=== PATIENT | male | born 1955 | race Caucasian/White ===

== ENCOUNTER 2018-08-13 19:19 | Inpatient (IN) | payer OTHER ==
[~2018-08-13] VITALS: Ht 162.6 cm; Wt 64.0 kg
--- NOTE | 2018-08-13 19:30 | NUR ---
PT ADMITTED FROM [facility] IN [place] PER PRIVATE CAR WITH HIS TWO SISTERS. PT APHASIC. ANSWERS SOME YES NO QUESTIONS. FOLLOWS MOST DIRECTIONS. VERY TIRED. DENIES PAIN. RECEIVED INFORMATION FROM SISTERS. PT HAS LIVING WILL. REQUESTED COPY OF IT. REVIEWED IPR ROUTINE. ORIENTED TO ROOM AND SCHEDULE. SISTERS VERY SUPPORTIVE. PT ATE 100% OF MEAL PROVIDED. REPORT INDICATED VERY IMPULSIVE. WILL NOT USE CALL LIGHT. CALL LIGHT IN REACH. REVIEWED SAFETY POLICY WITH PT AND FAMILY. PT HAS RT HEMIPARESIS. WALKS UNSTEADY. ASSISTED TO BED. TOOK SHOES OFF. DIDNT WANT TO CHANGE CLOTHING. BED ALARM SET.
[2018-08-13 19:49] VITALS: BP 121/76; PULSE 71; TEMP 97.2
[2018-08-13 20:32] VITALS: BP 131/79; PULSE 116
[2018-08-14] MEDS ORDERED: ROBAXIN 50500 MG/TAB PO (03:46)
[2018-08-14] MEDS ORDERED: NORCO 325 MG-7.1 TAB PO (03:47)
[2018-08-14] MEDS ORDERED: KEPPRA 500MG500 MG PO (03:48)
[2018-08-14] MEDS ORDERED: ZOFRAN ODT4 MG PO (03:49)
[2018-08-14] MEDS ORDERED: MULTI VITAMINS1 TAB PO (03:50)
[2018-08-14] MEDS ORDERED: DECADRON 1MG TAB1 MG PO (03:50)
[2018-08-14] MEDS ORDERED: VITAMIN C500 MG PO (03:51)
[2018-08-14] MEDS ORDERED: MASON NATURAL2000 IU (03:52)
[2018-08-14 05:21] VITALS: BP 103/67; BP 91/53; PULSE 56; TEMP 98.5
--- NOTE | 2018-08-14 07:04 | NUR ---
shift report received from LION Sahw
--- NOTE | 2018-08-14 08:15 | NUR ---
sitting up in chair, has had breakfast and tolerated well, answers questions with yes or no when asked, full assessment completed see interventions for further info,
--- NOTE | 2018-08-14 08:46 | NUR ---
physical therapy in to work with patient
--- NOTE | 2018-08-14 09:31 | NUR ---
back from physical therapy and resting in chair
--- NOTE | 2018-08-14 10:30 | NUR ---
physical therapy in to work with patient
--- NOTE | 2018-08-14 11:08 | NUR ---
occupational therapy in to work with patient
--- NOTE | 2018-08-14 13:45 | NUR ---
appears to be sleeping, in bed with eyes closed, resp quiet and easy
--- NOTE | 2018-08-14 14:41 | NUR ---
speech therapy completed and back to bed to rest
--- NOTE | 2018-08-14 15:33 | NUR ---
appears to be sleeping, in bed with eyes closed, resp quiet and easy
--- NOTE | 2018-08-14 15:45 | NUR ---
LORENZA attempted to meet with the patient to complete initial intake. The patient was sleepy and did not answer to LORENZA. LORENZA asked the patient if he would like for LORENZA to come back later. The patient nodded yes. LORENZA attempted to contact the patient's sister, Jocelyne, via phone. LORENZA left a voicemail and will continue to follow.
[2018-08-14 17:12] VITALS: BP 97/65; PULSE 55; TEMP 97.8
--- NOTE | 2018-08-14 17:45 | NUR ---
in bed and appears to be sleeping, lights of, eyes closed, resp quiet and easy
--- NOTE | 2018-08-14 18:34 | NUR ---
bedside shift report given to LION Shaw
--- NOTE | 2018-08-14 20:00 | NUR ---
PT RESTING IN BED. RESTLESS. UP TO BR SEVERAL TIMES, IMPULSIVELY. OFFER AMB IN [place]- DECLINED. PT ASPHASIC. DOES ANSWER SOME YES NO QUESTIONS. PT COULDNT ANSWER WHEN LBM WAS. GAVE SENOKOT AND TYLENOL. GOT SOME DR JEAN-BAPTISTE FROM THE MACHINE FOR PT. PT VERY HAPPY. RT SIDE WEAKNESS. BUT HAS STEADY GAIT. ENC PT TO CALL ON CALLIGHT IF NEEDING ANYTHING. INFORMED NOTES WERE PUT AT NURSES CALL LIGHT THAT HE WAS UNABLE TO VERBALLY RESPOND AND TO GO SEE IF HE NEEDED ANYTHING. PT SHOOK HEAD HE UNDERSTOOD. OCCASIONALLY WILL USE CALL LIGHT.
[2018-08-15 05:19] VITALS: BP 103/59; PULSE 54; TEMP 97.5
--- NOTE | 2018-08-15 08:00 | NUR ---
PATIENT IS UP IN BED THIS MORNING. PATIENT IS A&O. VSS. BOWEL SOUNDS ACTIVE ALL FOUR QUADRANTS. PATIENT TOLERATING MECHANICAL SOFT FOODS & LIQUIDS WITHOUT ANY DIFFICULTY. PATIENT DENIES COMPLAINTS OF N/V. POSITIVE PEDAL PULSES EQUAL BILATERALLY. 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 PATIENT DENIES PAIN AT THIS TIME. CALL LIGHT WITHIN REACH. NO OTHER NEEDS AT THIS TIME.
--- NOTE | 2018-08-15 16:04 | NUR ---
PATIENT REQUIRES SOME CUEING TO WIPE AND PULL PANTS UP AFTER USING THE BATHROOM INTERMITTENTLY. PATIENT EDUCATION ON UTILIZING THE CALL LIGHT REINFORCED.
[2018-08-15 18:00] VITALS: BP 96/65; PULSE 71; TEMP 97.9
--- NOTE | 2018-08-16 02:16 | NUR ---
THE PT WAS BEDRESTING WITH EYES CLOSED, RESP EVEN THE SHIFT BEGAN. THIS NURSE RECIEVED A CALL FROM THE PTS SISTER WHO ASKED ABOUT HIS DAY. REMINDED US THAT THE PT LIKES DR. JEAN-BAPTISTE. BAO. SHE STATED THAT SHE WASN'T ABLE TO MAKE A VISIT TODAY BUT WILL TOMORROW. HE HAD A VANILLA PUDDING FOR HS SNACK, MEDS TAKEN WHOLE WITHOUT DIFFICULTY. APPEARS TO GET ADEQUATE SLEEP. DENIED PAIN.
[2018-08-16 03:39] VITALS: BP 94/59; PULSE 56; TEMP 98.2
--- NOTE | 2018-08-16 04:27 | NUR ---
THE PT SET OFF HIS BED ALARM X 2 TONIGHT. EACH TIME WITH THE NEED TO GO TO THE BR AND VOID. HE THEN WENT TO THE SINK WITH CGA TO WASH HIS HANDS. HE SEEMED SLIGHTLY CONFUSED TO WHAT TO DO FIRST. 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 THIS NURSE RETRIEVED IT. SHOWED HIM THAT IT S A CLOTH- REUSED OVER AND OVER.
--- NOTE | 2018-08-16 06:12 | NUR ---
THE PT'S ACCUCHECK THIS AM IS 101, HE HAS NO OTHER LABS DUE THIS AM. APPEARS TO HAVE SLEPT ADEQUATELY.
--- NOTE | 2018-08-16 09:11 | NUR ---
Assessment complete.patient awake,alert,confused and impulsive.attempted to get out of bed.this nurse redirected.patient took all meds crushed in yogurt.tu to head are CDI and edges are well approximated.patient denies any needs at this time.calll light in reach.
[2018-08-16 16:16] VITALS: BP 110/70; PULSE 55; TEMP 98.3
--- NOTE | 2018-08-16 17:17 | NUR ---
PATIENT RESTING IN ROOM AT THIS TIME.FAMILY STOPPED BY TO VISIT.PATIENT REMAINS APHASIC.PT HAS USED THE CALL LIGHT APPROPRIATELY X3 THIS SHIFT.GAIT IS STABLE.SBA.FAMILY REQUEST CHANGE OF DIET,THIS RN EXPLAINED THAT SPEECH THERAPY IS INCHARGE OF THAT AND ARE FOLLOWING PATIENT.WILL CONTINUE TO MONITOR.CALL LIGHT IN REACH
--- NOTE | 2018-08-16 23:58 | NUR ---
PT RESTING. FOLLOW COMMANDS. APHASIC. DOES NOT ATTEMPT TO COMMUNICATE. NO EYE CONTATCT. SHAKES HEAD NO TO PAIN QUESTION. CALL LIGHT IN REACH. BED ALARM SET.
[2018-08-17 05:04] VITALS: BP 117/80; PULSE 54; TEMP 98.5
[2018-08-17 08:06] LABS: HEMATOCRIT 41.9 % (42.0-52.0); HEMOGLOBIN 13.8 g/dl (13.5-18.0); MEAN CELL VOLUME 88 fl (80.0-100.0); MEAN CORPUSCULAR HEMOGLOBIN 29 pg (27.0-31.0); MEAN CORPUSCULAR HGB CONC 33 g/dl (33.0-37.0); MEAN PLATELET VOLUME 8.3 fl (7.4-10.4); PLATELET COUNT 332 K/mm3 (130-400); RED BLOOD COUNT 4.74 M/mm3 (4.20-5.60); REDCELL DISTRIBUTION WIDTH-CV 14.2 % (11.5-14.5)
[2018-08-17 08:16] LABS: ALBUMIN 3.3 gm/dL (3.5-5.0); BILIRUBIN,TOTAL 0.3 mg/dL (0.0-1.0); CALCIUM 8.6 mg/dL (8.4-10.2); CREATININE, serum 0.78 mg/dL (0.66-1.25); MAGNESIUM 2.3 mg/dL (1.6-2.3); POTASSIUM 4.6 mmol/L (3.4-5.0); TOTAL PROTEIN 6.2 gm/dL (6.4-8.2)
--- NOTE | 2018-08-17 08:22 | NUR ---
Report from LION Shaw. Pt ate breakfast, aphasic, nods yes/no and tries to whisper answer. Took pills crushed in applesauce, amb with gait belt and CGA. Incison CDI with tu. Washed hands at sink after breakfast, assisted with donning shoes and left with CPTA. Denies pain.
--- NOTE | 2018-08-17 08:36 | NUR ---
SCDs off as pt OOB
[2018-08-17 10:07] LABS: LYMPHOCYTE 23 % (20.0-51.0); NEUTROPHILS 73 % (42.0-75.2); PLATELET ESTIMATE NORMAL (NORMAL)
[2018-08-17 15:23] VITALS: BP 98/64; PULSE 62; TEMP 98
--- NOTE | 2018-08-17 16:09 | NUR ---
Pt's sisters and family visiting. Pt toileted, returned to chair with alarm on.
--- NOTE | 2018-08-17 16:47 | NUR ---
SCD's off as pt OOB
--- NOTE | 2018-08-17 17:56 | NUR ---
Pt's bed alarm went off, he motioned toward the bed where the pillows rest and said one word over again but could not discern. Nurse prompted pt if he wanted the head of the bed down, yes, then if he wanted to tv off, yes. Settled into bed, alarm on. Call light in reach.
--- NOTE | 2018-08-18 01:23 | NUR ---
THE PT WAS NAPPING THE SHIFT BEGAN. HE AROUSED EASILY FOR ASSESSMENT AND MEDS, THEN ATE AN ICE CREAM. MEDS WERE CRUSHED IN APPLE SAUCE. DENIED PAIN. AFFECT QUIET. SAT UP ON EDGE OF BED, SETTING OFF HIS BED ALARM, THIS NURSE WALKED HIM TO THE BR, VOIDED AND BACK TO BED. APPEARS TO GET ADEQUATE SLEEP.
--- NOTE | 2018-08-18 03:15 | NUR ---
THE PT SAT UP ON THE EDGE OF THE BED, ALARM SOUNDED, THIS NURSE IN AND ASSISTED THE PT TO THE BR TO VOID, THEN TO THE SINK TO WASH HIS HANDS.
[2018-08-18 03:58] VITALS: BP 94/65; PULSE 57; TEMP 98.2
--- NOTE | 2018-08-18 14:59 | NUR ---
Patient attended all therapies today. Currently resting in recliner, call light in reach and alarm on. Patient has shoes on at this time. Patient tolerating diet well at this time. Currently on a mechanical soft diet. Patient has dyphasia and seems to act like he understands what staff are saying to him. He takes his pills crushed with applesauce or pudding. He has been complient with sitting at a 90 degree angle when eating and has shown known signs of coughing with eating with either breakfast or lunch meal. Will continue to monitor.
[2018-08-18 17:25] VITALS: BP 107/67; PULSE 80; TEMP 98.1
--- NOTE | 2018-08-18 18:16 | NUR ---
Patient ate well this shift. Had neighbors stop by to see him today. Patient is observed as being quiet, friends report that he was like that before the dysphasia occured. Patient used call light appropriatly this shift and did not get up before staff arrived to assist him to the bathroom. Denied pain this shift.
--- NOTE | 2018-08-19 02:46 | NUR ---
THE PT WAS NAPPING THE SHIFT BEGAN. HE AROUSED EASILY FOR ASSESSMENT AND MEDS. AGREEABLE TO TAKE HIS SNACK. MEDS CRUSHED IN APPLE SAUCE. HE IS UP TO THE BR WITH SBA, GAIT STEADY BUT TOO FAST AND HAS SOME DIFFICULTY WITH ADL SEQUENCING THIS NURSE HAD TO CUE HIM TWICE TO LOWER HIS UNDERWEAR BEFORE HE SITS DOWN ON THE COMMODE. THEN CUE HIM TO WET, LATHER, RINSEHIS HANDS HE TURNS THE FAUCET OFF WHEN SOAPED UP. HE APPEARS TO GET ADEQUATE SLEEP. DENIED PAIN
--- NOTE | 2018-08-19 03:22 | NUR ---
THE PT IS BEDRESTING WITH EYES CLOSED, RESP EVEN
[2018-08-19 06:23] VITALS: BP 108/68; PULSE 65; TEMP 98.4
--- NOTE | 2018-08-19 11:22 | NUR ---
Faxed consult referral form to [facility]. Called the office to make them aware that this patient needed to be seen. Person at Behavioral Health office voiced understanding. Awaiting a visit from Dr. Moya.
--- NOTE | 2018-08-19 15:47 | NUR ---
LORENZA called patients sister Roxana about IPR team conference notes. LORENZA explained the contents to her. She is worried about him being able to be alone at discharge. LORENZA talked with her about HH and private duty help while she is at work if he were to come stay with her. Roxana reports her sister in law is a nurse and could maybe help on her days off as well. LORENZA talked with Roxana about a family conference early next week. She is going to call her siblings and see about a time they could do and call LORENZA back by tomorrow am. LORENZA will follow up to set a family conference time.
--- NOTE | 2018-08-19 16:11 | NUR ---
Patient attended all therapies today, he is currently visiting with Dr. Moya at this time. See new orders per Dr. Moya. Will make a call to a pharmaceutical laboratory technician to see if they could make rounds to see this patient daily. Attempted to call pharmaceutical laboratory technician and did not get an answer. Left a voicemail for someone to return my call. Awaiting a return call. This will be communicated to the next shift nurse.
[2018-08-19 18:10] VITALS: BP 103/67; PULSE 67; TEMP 98.1
--- NOTE | 2018-08-19 19:41 | NUR ---
Never received a return call from nurse infection control. Communicated to night nurse to have day shift call nurse infection control services and have them see patient on rounds tomorrow. She voiced understanding.
--- NOTE | 2018-08-19 21:49 | NUR ---
PT SITTING UP IN RECLINER. TOOK HS SNACK. DENIES PAIN. RT SIDED WEAKNESS NOTED. SOME RT SIDED NEGLECT NOTED. CALL LIGHT IN REACH. CHAIR ALARM SET.
[2018-08-20 04:33] VITALS: BP 93/62; PULSE 60; TEMP 98.3
--- NOTE | 2018-08-20 10:04 | NUR ---
Report from LION Shaw. Pt was asleep in bed this morning at shift change. ST in with pt now. Pt has severe aphasia, needing max assist for uttering words. Incision with tu intact.
--- NOTE | 2018-08-20 10:09 | NUR ---
Pt took pills one at a time with water through straw. Coughing on first pills. Deb others well. ST Janell supervised.
--- NOTE | 2018-08-20 10:56 | NUR ---
LORENZA spoke with patients sister Roxana who reports they can come friday, 08/24, for a family meeting at 9 am in patients room. Aubree, [facility] director, informed.
--- NOTE | 2018-08-20 12:27 | NUR ---
Pt's chair alarm went off, pt amb to BR, SBA to sink for hygiene, asked pt if he had a normal BM, he states yes. Answers yes/no questions. Took three pills with water without difficulty. To chair with alarm on, call light in reach
--- NOTE | 2018-08-20 14:41 | NUR ---
SCDs off as pt OOB to chair.
--- NOTE | 2018-08-20 15:03 | NUR ---
Called [facility] to request pt be visited d/t depression and tearfulness per Psych.
--- NOTE | 2018-08-20 15:08 | NUR ---
Pt impulsive out of chair to bed, set off alarms, set bed alarm on middle setting, offered blankets, agreeable. Greige Goods Inspector visited.
--- NOTE | 2018-08-20 15:11 | NUR ---
Initial visit; Patient appeared 'blue' to nurse who requested Chinese Herbalist visit. Chinese Herbalist visited Alvin who appeared ready for his nap but was receptive to prayer. Chinese Herbalist offered comfort and prayer and with patient's permission decided to return tomorrow morning for prayer and perhaps reading.
[2018-08-20 18:27] VITALS: BP 98/63; PULSE 67; TEMP 97.7
--- NOTE | 2018-08-20 18:35 | NUR ---
Pt in bed with alarm on, call light in reach.
[2018-08-21 03:55] VITALS: BP 92/59; PULSE 59; TEMP 98.5
--- NOTE | 2018-08-21 04:47 | NUR ---
PT HAS SLEPT THROUGH MOST OF THE NIGHT. DENIES PAIN OR COMPLAINTS AT THIS TIME.
--- NOTE | 2018-08-21 07:36 | NUR ---
SCDs off as pt OOB to chair for breakfast
--- NOTE | 2018-08-21 14:32 | NUR ---
Follow-up visit; Several stop in's today, Support Services Rep is attempting to discern what might be helpful in ministering to Alvin. He seems to be comfortable with visits though answers only by saying "yeah," or shaking his head. He isn't interested in reading but states that he knows he has people who care and want to help. He is 'ok' with a visit from an "On-Call" Support Services Rep on rounds Friday and regular Support Services Rep will follow-up Friday.
--- NOTE | 2018-08-21 14:42 | NUR ---
Pt took pills this morning one at a time with thin liquids. No coughing, but acted like he had difficulty swallowing a few of them, enc pt to take his time, offered spoon of yogurt after these episodes. Pt would slat pickler varying cups/bowls to drink from: spilling opened milk carton from mouth so provided straw for carton, he also sipped on juice from bowl of peaches after taking a pill, then would reach for water with straw. Pt attempts to speak a few words, was able to say his first and last name, when asked he only correctly said "6" and other numbers. Pt has gotten up without calling, once called then moved prior to staff arriving. Amb w/o device. In recliner with alarm on, call light in reach. Incision intact, shoes in place.
--- NOTE | 2018-08-21 15:34 | NUR ---
Pt called then got up before staff at his side. Toileted.
--- NOTE | 2018-08-21 15:41 | NUR ---
Pt toileted, washed hands at sink, to bed with alarm on, call light in reach.
[2018-08-21 16:20] VITALS: BP 99/66; PULSE 68; TEMP 98.7
--- NOTE | 2018-08-21 19:17 | NUR ---
Bedside report to LION Araiza. Pt to Kenyatta LINDSAY CNA finished assisting pt. Visitors arrived.
--- NOTE | 2018-08-21 20:00 | NUR ---
Patient in bed, family at bedside. Patient able to answer yes or no questions with ease. Alert and oriented. Patient up to restroom, stand by assist, with steady gait. Scalp incision with tu intact, edges well approximated. Denies pain at this time. Denies further needs at this time.
[2018-08-22 04:04] VITALS: BP 112/56; BP 92/56; PULSE 57; TEMP 98.2
--- NOTE | 2018-08-22 05:33 | NUR ---
Patient has rested well through the night. Minimal needs. Has been up to restroom, stand by assist, with steady gait. Continues to deny pain. Denies further needs at this time. Will report off to day shift.
--- NOTE | 2018-08-22 08:00 | NUR ---
Patient sitting in recliner at this time, call light in reach and chair alarm is on. Denies pain this morning. Helped patient select clothes for today and set out to put on following breakfast. Tolerating diet well this morning. Will continue to monitor.
--- NOTE | 2018-08-22 14:23 | NUR ---
Walked the surgical/IPR/medical hallways with patient making three rounds. Patient was observation only. Worked with patient on viewing his photos and having him talk with this nurse. He was not able to write out his dogs name, but did say dog correctly and pointed to him. He had a smile on his face a few times today.
--- NOTE | 2018-08-22 16:01 | NUR ---
Trimmed patient's finger nails and filed them. Patient assisted this nurse with making his bed today. He pulled up blankets and helped fold them down. Currently he is reclined in his chair and watching television. Will continue to monitor.
[2018-08-22 18:00] VITALS: BP 106/64; PULSE 83; TEMP 97.9
--- NOTE | 2018-08-22 21:00 | NUR ---
Patient resting in bed at this time, Patient is alert and oriented, but aphasic, able to communicate by nodding and shaking his head, and pointing. Patient denies needs, call light wihtin reach. Bed alarm on.
[2018-08-23 06:11] VITALS: BP 92/59; PULSE 58; TEMP 97.7
--- NOTE | 2018-08-23 11:08 | NUR ---
Patient currently walking with staff around hallway at this time. Tolerating diet well eating all his meal this morning. Denies pain today. Assisted with dressing this morning. Will try to work in a shower this afternoon if possible. Patient in pleasent mood. Will continue to monitor.
--- NOTE | 2018-08-23 12:41 | NUR ---
Patient resting in recliner at this time, call light in reach and tennis shoes on. Tolerating meals well, eating 100% of lunch. Will continue to monitor.
--- NOTE | 2018-08-23 14:54 | NUR ---
Patient resting in recliner at this time, call light in reach and alarm is on. Pleasent mood today. Denies pain at this time. Denies questions at this time.
[2018-08-23 15:37] VITALS: BP 130/64; PULSE 67; TEMP 97.7
--- NOTE | 2018-08-23 19:33 | NUR ---
Patient had a shower following supper this evening. Currently resting in bed, call light in reach and bed alarm is on. Denied pain this evening.
--- NOTE | 2018-08-23 22:59 | NUR ---
THE PT WAS NAPPING THE SHIFT BEGAN, HE TOOK ALL OF HIS ENLIVE NUTRITIONAL SUPPLIMENT, THEN HAD MEDS CRUSHED IN VANILLA PUDDING AND THEN FINISHED THE CUP, OFFERED ICE CREAM, HE WANTED CHOCOLATE. THIS NURSE WENT THROUGH THE MENUE WITH HIM, HE SHOOK HIS HEAD YES AND NO TO DETERMINE WHAT HE WANTED. HE DENIED WANTING ANY BEVERAGES ON THE MENUE, BUT SEEMED FRUSTRATED AT OFFERS, THIS NURSE RECALLED THAT HIS SISTERS MENTIONED THAT HE JUST DRANK DR CUNHA AT HOME, WHEN ASKED IF HE WANTED DR. JEAN-BAPTISTE, HE STRONGLY ACKNOWLEDGED YES. HE HAS HIS BED ALARM ON, AWARE TO CALL FOR ASSISTANCE WITH ALL OOB NEEDS.
--- NOTE | 2018-08-24 00:47 | NUR ---
THE PT ISN'T USING HIS SCD'S HE IS IMPULSIVE AND FAST, BED ALARMS SET ON SECOND SETTING, AT GREATER RISK FOR FALL\INJURY IF THEY ARE ON.
[2018-08-24 04:23] VITALS: BP 94/53; PULSE 58; TEMP 97.6
--- NOTE | 2018-08-24 04:37 | NUR ---
AROUSED FOR VS CHECK, STABLE.
--- NOTE | 2018-08-24 06:24 | NUR ---
bedresting with eyes closed, resp even.
--- NOTE | 2018-08-24 10:18 | NUR ---
LORENZA, IPR director, PT, OT, and ST met with patient and siblings for a family conference. Aubree, IPR director, started the meeting explaining the purpose of the meeting and introducing herself. OT discussed patients progress with her and how he will need 24 hour supervision if he were to discharge soon. PT discussed how well patient is walking and doing in PT. ST reports he has gone to a regular diet and is making progress. SW discussed discharge and that there isn't a set date at this time. Family still would like to take him home with one of them however they will not be able to provide 24 hour care as his sister would be working until summer break. They are going to look into other options until then. They had some questions about patients insurance and if he would qualify for disability. LORENZA called Caryn in finance to meet with family this am. LORENZA will continue to follow and will update family after team meeting on fri.
[2018-08-24 17:42] VITALS: BP 103/70; PULSE 78; TEMP 97.7
--- NOTE | 2018-08-25 00:50 | NUR ---
PT WAS SITTING UP IN HIS RECLINER, CALLED FOR ASSISTANCE TO THE BR TO VOID, THEN HS CARES AT THE SINK AND TO THE BED. HE TOOK ALL OF HIS ENLIVE, ATE A PUDDING AND AN ICE CREAM. AFFECT PLEASANT, WORD SEARCHES, ABLE TO MAKE HIS WANTS AND NEEDS KNOWN. HIS ALARM IS SET, HE SAT UP ON THE EDGE OF THE BED, SET OFF THE ALARM, BUT WAITED UNTIL THIS NURSE WAS THERE TO WALK HIM TO THE BR, TO THE SINK AND BACK TO BED.
[2018-08-25 03:06] VITALS: BP 103/67; PULSE 62; TEMP 98.2
--- NOTE | 2018-08-25 03:42 | NUR ---
BEDRESTING WITH EYES CLOSED, RESP EVEN
--- NOTE | 2018-08-25 04:39 | NUR ---
UP TO THE BR TO VOID, TO THE SINK FOR HYGIENE AND TO BED.
--- NOTE | 2018-08-25 12:38 | NUR ---
Patient ate 100% of lunch, currently resting in recliner, call light in reach and chair alarm on. Patient attended all morning therapies. Denies pain. Will continue to monitor.
--- NOTE | 2018-08-25 16:24 | NUR ---
Patient currently resting in bed, call light in reach, bed alarm on and slip proof socks on. This nurse removed 28 tu and 3 sutures to left side of head. Patient tolerated with only minimal discomfort observed. Edges to incision healing very well. Will continue to monitor.
--- NOTE | 2018-08-25 18:05 | NUR ---
Patient currently resting in bed at this time, call light in reach, has his pants off, in his own underwear, slip proof socks on and bed alarm is on. Patient attended all therapies today. Tolerating diet well eating all his meals. Very quiet this shift. Used call light appropriatly this shift and waited for staff to come to assist him. Denies pain. Will continue to monitor.
[2018-08-25 18:38] VITALS: BP 95/66; PULSE 62; TEMP 98.8
--- NOTE | 2018-08-25 23:26 | NUR ---
THE PT WAS SITTING UP IN HIS RECLINER THE SHIFT BEGAN, ASSISTED TO THE BR AND TO BED BY OTHER STAFF. HE NAPS UNTILL AWAKE FOR MEDS AND ASSESSMENT. MEDS TAKEN CRUSHED IN PUDDING, PT EATS THE REST OF THE PUDDING, HE ALSO DRANK HIS ENLIVE AND ATE AN ICE CREAM. BED ALARM SOUNDS, ASSISTED THE PT TO THE BR TO VOID, TO THE SINK TO WASH HIS HANDS, THEN TO BED, POSITIONED FOR COMFORT, APPEARS TO GET ADEQUATE SLEEP.
--- NOTE | 2018-08-26 03:12 | NUR ---
THE PT IS BEDRESTING WITH EYES CLOSED, RESP EVEN. SITS UP ON THE EDGE OF THE BED, ALARM SOUNDS BUT THE PT STAYED UNTIL THIS NURSE GOT THERE TO AMBULATE TO THE BR AND VOID.
[2018-08-26 06:11] VITALS: BP 93/58; PULSE 62; TEMP 98.4
--- NOTE | 2018-08-26 07:51 | NUR ---
Report from LION John. Pt to chair for breakfast, SCDs off as pt OOB. Denies pain, incision intact.
--- NOTE | 2018-08-26 07:59 | NUR ---
Pt had some difficulty taking pills whole one at a time with the second to last large pill using thin liquids. Took several sips of water with a straw and paused, had some belching, then offered pudding as chaser. Still has some residual liquid from right corner of mouth, washcloth provided. Pt is using a few more words.
--- NOTE | 2018-08-26 13:16 | NUR ---
Pt finished lunch then gestured towards the bathroom, pt began showering, nurse just waited in room, nAa here to supervise now.
--- NOTE | 2018-08-26 15:50 | NUR ---
SW called patients sister to discuss discharge and IPR team conference. She is going to call her brother and see what he would like to do at discharge and if they feel they want senior living placement or him to stay with family.
--- NOTE | 2018-08-26 16:33 | NUR ---
LORENZA spoke with patients other sister who reports they dont feel he should return home at this time. THey would like a referral sent to [facility]. SW made referral.
--- NOTE | 2018-08-26 18:02 | NUR ---
Visitors in room, pt srinivas Indep in .
[2018-08-26 18:05] VITALS: BP 111/68; PULSE 69; TEMP 97.6
--- NOTE | 2018-08-26 20:30 | NUR ---
Patient awakened for HS meds/reviewed and given. Keppra cut in half, otherwise takes meds 1-2 at a time. Enlive given with 2 icecreams. Patient denies pain or needs. States 1 word sentence-no, maybe and nay. Able to state name but not date of .
--- NOTE | 2018-08-26 21:37 | NUR ---
Patient rests in bed with eyes closed.
--- NOTE | 2018-08-27 02:35 | NUR ---
Patient rests quietly in bed. Respirations with ease.
[2018-08-27 04:24] VITALS: BP 94/59; PULSE 59; TEMP 97.5
--- NOTE | 2018-08-27 10:19 | NUR ---
Follow-up visit; Patient was receptive to Technologies Division Chair looking in on him and wishing him well on his 'journey' and offering prayer.
--- NOTE | 2018-08-27 11:20 | NUR ---
Patient ate 100% of breakfast this morning. He denies pain. Currently working with PT at this time. He is independent in his room. Patient will be discharged tomorrow to home. He has attended all therapies this morning. Will continue to monitor.
--- NOTE | 2018-08-27 11:37 | NUR ---
LORENZA left a VM for Fabiola at [facility].
--- NOTE | 2018-08-27 16:15 | NUR ---
LORENZA talked with Fabiola at [facility] who reports they can accept patient but his insurance has a 60 days a year max with 20% copay after the $1000 deductible is met. LORENZA called patients sister in law and told her the information. She is going to talk to her family and call this worker back before tomorrow am. If patient goes Dr Salinas will need a Doc to Doc call at [phone].
[2018-08-27 16:29] VITALS: BP 99/61; PULSE 82; TEMP 98
--- NOTE | 2018-08-27 21:00 | NUR ---
Patient rests quietly in bed. Respirations with ease.
--- NOTE | 2018-08-27 21:00 | NUR ---
Patient attended all therapies today. Is independent in his room. Denied pain this shift. Tolerated meals eating 100%. Pleasent mood today.
--- NOTE | 2018-08-27 21:45 | NUR ---
Awakened for HS meds. Reviewed and given in applesauce 1 at a time. Patient drowsy and not able to state name and . States ya to most questions. Denies pain or dizziness.
--- NOTE | 2018-08-28 02:37 | NUR ---
Patient has been resting in bed with eyes closed. Respirations with ease.
[2018-08-28 03:23] VITALS: BP 91/61; PULSE 60; TEMP 98.2
--- NOTE | 2018-08-28 05:26 | NUR ---
Patient rests with eyes closed. Respirations with ease.
[2018-08-28] MEDS ORDERED: TYLENOL 325MG325 MG PO (08:03)
[2018-08-28] MEDS ORDERED: REMERON 15M15 MG/TA1 PO (08:07)
[2018-08-28] MEDS ORDERED: DECADRON 1MG TAB1 MG PO (08:07)
--- NOTE | 2018-08-28 09:37 | NUR ---
Report from LION Bourgeois. Pt given meds with pudding. Denies pain. Participating in OT
--- NOTE | 2018-08-28 10:05 | NUR ---
Per Rita, IPR Director, states pt is going to stay until Friday and discharging to swing bed.
--- NOTE | 2018-08-28 11:37 | NUR ---
Brother visiting. Pt srinivas mccann in rm. Given pill with pudding
[2018-08-28 16:35] VITALS: BP 100/66; PULSE 59; TEMP 97.3
--- NOTE | 2018-08-28 19:47 | NUR ---
Lonny mccann in , report to LION Shaw.
--- NOTE | 2018-08-28 21:00 | NUR ---
PT ASLEEP BUT WAKES EASILY FOR MEDS. TAKES WITH APPLESAUCE. DENIES PAIN. BED ALARM SET. CALL LIGHT IN [facility].
[2018-08-29 03:55] VITALS: BP 98/72; PULSE 52; TEMP 98.2
--- NOTE | 2018-08-29 08:55 | NUR ---
Report from LION Shaw. Pt srinivas indep in rm. Sat up in chair for breakfast, answers questions with utterances and shrugging shoulders. Took meds with applesauce and water. Gripper socks in place, incision CDI.
--- NOTE | 2018-08-29 12:19 | NUR ---
Awakened pt for lunch, he moved his bedside tray over in front of chair and took of plastic lids from soup and drinks.
--- NOTE | 2018-08-29 14:19 | NUR ---
Offered to walk with pt in the halls, he states no and points to bathroom, he begins running shower, nurse waiting outside BR door.
--- NOTE | 2018-08-29 14:36 | NUR ---
Pt completed shower and dressed without assist
--- NOTE | 2018-08-29 14:37 | NUR ---
Amb rodriguez with nurse
[2018-08-29 15:54] VITALS: BP 95/61; PULSE 59; TEMP 98
--- NOTE | 2018-08-29 17:16 | NUR ---
Pt working on 500 piece puzzle before supper. CAIT You assisted pt with ordering meals for tomorrow.
--- NOTE | 2018-08-29 20:27 | NUR ---
PT RESTING IN BED. TOOK HS MEDS WITH APPLESAUCE. MOD I IN ROOM. ENC SAFTEY WHEN UP. DENIES PAIN. CALL LIGHT IN REACH.
[2018-08-30 04:08] VITALS: BP 95/55; PULSE 52; TEMP 98.2
--- NOTE | 2018-08-30 08:42 | NUR ---
Report from LION Shaw. Pt srinivas indep in rm. To chair for breakfast, took pills with thin liquids or applesauce, had some difficulty with larger pills, needed more time to get down. Pt reached for applesauce and tried to sip it, eventually used spoon. Opened syrup packages for pt after prompting him with, "this is syrup if you want it for your pancakes." Then pt poured on cakes. Pt said, "Alright, thanks."
--- NOTE | 2018-08-30 13:27 | NUR ---
Pt working on puzzle.
[2018-08-30 17:12] VITALS: BP 108/71; PULSE 64; TEMP 97.8
--- NOTE | 2018-08-30 20:00 | NUR ---
PT ASLEEP IN BED. NO RESP DISTRESS.
[2018-08-31 05:42] VITALS: BP 104/70; PULSE 60; TEMP 98
--- NOTE | 2018-08-31 13:27 | NUR ---
Contacted Faibola at [facility]. Inquired if everything was still good for pt to transfer to them tomorrow. She requested updated information to submit to insurance. Faxed requested information to [phone].
--- NOTE | 2018-08-31 15:43 | NUR ---
Follow-up visit; Patient awake and talked a little more than in the past, though still had difficulty with re-call. Alvin appears uncomfortable with visits.
--- NOTE | 2018-08-31 17:56 | NUR ---
Patient resting in bed at this time. He attended all therapies today. Patient ate all his meals today, tolerating very well. Denies pain at this time.
--- NOTE | 2018-08-31 18:00 | NUR ---
Patient currently resting in bed at this time, call light in reach and independent in his room. Patient was independent on all his grooming tasks and with toileting hygene. Gave report to
[2018-08-31 18:24] VITALS: BP 99/66; PULSE 70; TEMP 98.5
--- NOTE | 2018-08-31 20:15 | NUR ---
HS meds along with supplement shake reviewed and given. Meds were given whole in applesauce. Patient quiet and only states a 1 word sentence. Nay and yeah. Denies pain or needs. Denies dizziness. Returns to resting back in bed.
--- NOTE | 2018-09-01 01:02 | NUR ---
patient rests with eyes closed. Respirations with ease.
[2018-09-01 05:28] VITALS: BP 93/61; PULSE 50; TEMP 97.9
--- NOTE | 2018-09-01 06:00 | NUR ---
Patient awakened for am vitals, otherwise resting with eyes closed on nursing rounds.
--- NOTE | 2018-09-01 09:51 | NUR ---
Follow-up visit; Patient somewhat responsive though continues to appear uncomfortable communicating. Motor Checker offered him God's blessings.
[2018-09-01] MEDS ORDERED: DECADRON 1MG TAB1 MG PO (10:00)
[2018-09-01 10:05] VITALS: BP 93/61; PULSE 50; TEMP 97.9
--- NOTE | 2018-09-01 11:05 | NUR ---
Patient just left at 11 AM to go to [facility]. Papers were sent with sister (Patient Health Summary, Discharge Summary and Home Med discharge list). Belongings gathered by Aggie including clothing and puzzle. Patient transported via wheelchair by Aggie and seatbelted for ride to [place] with sister. Patient and sister denied questions. Gave report to oncoming nurse Shweta @ [facility], she voiced understanding and denied any questions. Left my phone number to call if she has any questions.
--- NOTE | 2018-09-01 13:53 | NUR ---
Fabiola, at [facility], reports that they can accept the patient for swing bed and that Dr. Salinas will follow. The patient is to discharge today, 09/01, to [facility]. Transportation to be by private car, via the patient's [id number]. No additional needs at this time.
== END 2018-09-01 11:00 | disposition swing bed (61) | DRG 948 ==
PROVIDERS: ADMIT Internal Medicine
DX: R53.81 Other malaise (principal); G81.91 Hemiplegia, unspecified affecting right dominant side; R47.01 Aphasia; E44.0 Moderate protein-calorie malnutrition; D32.0 Benign neoplasm of cerebral meninges; R13.10 Dysphagia, unspecified; Z87.891 Personal history of nicotine dependence; R73.9 Hyperglycemia, unspecified; Z68.22 Body mass index [BMI] 22.0-22.9, adult
CPT/HCPCS: 99222-AI; 99232-AI; 99239; J8540

== ENCOUNTER 2019-04-14 10:15 | Inpatient (IN) | payer OTHER ==
[~2019-04-14] VITALS: Ht 165.1 cm; Wt 69.4 kg
[~2019-04-14 10:15] MED LIST: DECADRON 1MG TAB1 MG PO; KEPPRA 500MG500 MG PO; MASON NATURAL2000 IU; MULTI VITAMINS1 TAB PO; NORCO 325 MG-7.1 TAB PO; REMERON 15M15 MG/TA1 PO; ROBAXIN 50500 MG/TAB PO; TYLENOL 325MG325 MG PO; VITAMIN C500 MG PO; ZOFRAN ODT4 MG PO
[2019-04-14 10:30] LABS: BASO # 0.1 (0.0-0.2); BASO % 0.8 % (0.0-2.0); EOS # 0.1 (0.0-0.7); EOS % 1.3 % (0-4.0); GRAN # 5.1 (1.4-6.5); GRAN % 45.4 % (42.2-75.2); HEMOGLOBIN 16.2 g/dl (13.5-18.0); LYMPH # 4.7 (1.2-3.4); LYMPH % 41.6 % (20.0-51.0); MEAN CELL VOLUME 89 fl (80.0-100.0); MEAN CORPUSCULAR HEMOGLOBIN 28 pg (27.0-31.0); MEAN CORPUSCULAR HGB CONC 31 g/dl (33.0-37.0); MEAN PLATELET VOLUME 9.2 fl (7.4-10.4); MONO # 1.2 (0.1-0.6); MONO % 10.5 % (1.7-9.3); PLATELET COUNT 399 K/mm3 (130-400); RED BLOOD COUNT 5.88 M/mm3 (4.20-5.60); REDCELL DISTRIBUTION WIDTH-CV 15.9 % (11.5-14.5)
[2019-04-14 10:31] LABS: HEMATOCRIT 52.4 % (42.0-52.0)
[2019-04-14 10:40] LABS: ALANINE AMINOTRANSFERASE < 6 U/L (21-72); ALBUMIN 4.8 gm/dL (3.5-5.0); ALKALINE PHOSPHATASE 99 U/L (50-136); ANION GAP 29 mmol/L (7-16); AST,SGOT 32 U/L (15-37); BILIRUBIN,TOTAL 0.7 mg/dL (0.0-1.0); BLOOD UREA NITROGEN 21 mg/dL (9-20); CALCIUM 9.5 mg/dL (8.4-10.2); CHLORIDE 104 mmol/L (98-107); CREATININE, serum 1.19 (0.66-1.25); GLUCOSE 120 mg/dL (74-106); POTASSIUM 4.1 mmol/L (3.4-5.0); SODIUM 143 mmol/L (137-145); TOTAL PROTEIN 8.6 gm/dL (6.4-8.2)
[2019-04-14 10:41] LABS: INR 0.9 (0.8-3.0); PROTHROMBIN TIME 10.9 SECONDS (9.7-12.8)
[2019-04-14 10:43] LABS: CARBON DIOXIDE 11 mmol/L (22-30)
[2019-04-14 11:05] LABS: TROPONIN-I < 0.012 ng/mL (0.000-0.035)
[2019-04-14 13:18] VITALS: BP 93/65; PULSE 65; TEMP 97.7
[2019-04-14 16:12] VITALS: BP 90/58; PULSE 64; TEMP 97.7
[2019-04-14 20:28] VITALS: BP 96/55; PULSE 88; TEMP 98.2
[2019-04-14 22:58] LABS: PH 8 (5-8); SQUAMOUS EPITHELIAL None Seen /hpf; URINE APPEARANCE Clear; URINE BACTERIA None Seen /hpf; URINE BILIRUBIN Negative (NEGATIVE); URINE BLOOD Negative (NEGATIVE); URINE COLOR Straw; URINE GLUCOSE Negative (NEGATIVE); URINE KETONE Negative (NEGATIVE); URINE LEUKOCYTE ESTERASE Negative (NEGATIVE); URINE NITRATE Negative (NEGATIVE); URINE PROTEIN(semi-quant) Negative (NEGATIVE); URINE RBC 0-2 /hpf; URINE UROBILINOGEN Negative (NEGATIVE)
[2019-04-14 23:43] VITALS: BP 89/52; PULSE 81; TEMP 97.4
[2019-04-15 00:48] LABS: COLLECTION METHOD CLEAN CATCH
[2019-04-15 04:08] VITALS: BP 93/55; PULSE 68; TEMP 97.5
[2019-04-15 06:48] LABS: HEMATOCRIT 45.4 % (42.0-52.0); HEMOGLOBIN 14.4 g/dl (13.5-18.0); MEAN CELL VOLUME 87 fl (80.0-100.0); MEAN CORPUSCULAR HEMOGLOBIN 28 pg (27.0-31.0); MEAN CORPUSCULAR HGB CONC 32 g/dl (33.0-37.0); MEAN PLATELET VOLUME 9.3 fl (7.4-10.4); PLATELET COUNT 350 K/mm3 (130-400); RED BLOOD COUNT 5.24 M/mm3 (4.20-5.60); REDCELL DISTRIBUTION WIDTH-CV 16.3 % (11.5-14.5)
[2019-04-15 06:59] LABS: ALBUMIN 3.7 gm/dL (3.5-5.0); BILIRUBIN,TOTAL 0.3 mg/dL (0.0-1.0); CALCIUM 8.8 mg/dL (8.4-10.2); CREATININE, serum 0.9 (0.66-1.25); POTASSIUM 4.3 mmol/L (3.4-5.0); TOTAL PROTEIN 6.8 gm/dL (6.4-8.2)
[2019-04-15 07:39] LABS: LYMPHOCYTE 8 % (20.0-51.0); NEUTROPHILS 90 % (42.0-75.2); PLATELET ESTIMATE NORMAL (NORMAL)
[2019-04-15 07:40] LABS: ANISOCYTOSIS 1+; HYPOCHROMIA 2+
[2019-04-15 08:29] VITALS: BP 98/63; PULSE 74; TEMP 97.8
[2019-04-15] MEDS ORDERED: KEPPRA1000 MG PO (12:45)
[2019-04-15] MEDS ORDERED: DECADRON 4MG TAB4 MG PO (12:50)
[2019-04-15 13:14] VITALS: BP 98/78; PULSE 75; TEMP 97.5
== END 2019-04-15 16:20 | disposition home or self-care (01) | DRG 101 ==
LOC: COL.ER 10:15 → SURG 12:07
PROVIDERS: Emergency Medicine
DX: R56.9 Unspecified convulsions (principal); E87.2 Acidosis; E78.5 Hyperlipidemia, unspecified; I10 Essential (primary) hypertension; K59.00 Constipation, unspecified; F41.9 Anxiety disorder, unspecified; D32.9 Benign neoplasm of meninges, unspecified; Z87.01 Personal history of pneumonia (recurrent); Z87.891 Personal history of nicotine dependence
CPT/HCPCS: 99223-AI; 99239; J1100; J1644; J1953; J2060; J7030; J8540; Q9967

== ENCOUNTER 2024-04-21 14:58 | Inpatient (IN) | payer MEDICARE ==
[~2024-04-21] VITALS: Ht 172.7 cm; Wt 71.6 kg
[~2024-04-21 14:58] MED LIST changes: +DECADRON 4MG TAB4 MG PO; +KEPPRA1000 MG PO
[2024-04-21] MEDS ORDERED: LOPID 600M600 MG/TAB PO (18:34)
[2024-04-21] MEDS ORDERED: XALATAN EYE DROPS OD (18:34)
[2024-04-21] MEDS ORDERED: KEPPRA1000 MG PO (18:34)
[2024-04-21] MEDS ORDERED: REMERON30 MG PO (18:35)
[2024-04-21] MEDS ORDERED: NS 1,000 ML IV SCH (18:45)
[2024-04-21 20:00] VITALS: BP_SYST 92
[2024-04-21] MEDS ORDERED: NUEDEXTA 20 MG-1 CAP PO (20:29)
[2024-04-21 20:40] VITALS: BP 110/72; PULSE 71; TEMP 98.4
[2024-04-21] MEDS ORDERED: Latanoprost 0.005% Ophth Soln 2.5 ML BOTTLE OP SCH (21:00)
[2024-04-21] MEDS ORDERED: Mirtazapine 15 MG TAB PO SCH (21:00)
[2024-04-21] MEDS ORDERED: Atorvastatin 40 MG TAB PO SCH (21:00)
[2024-04-21] MEDS ORDERED: levETIRAcetam 500 MG TAB PO SCH (21:00)
[2024-04-21 23:15] VITALS: BP 92/54; PULSE 68; TEMP 98.3
[2024-04-21 23:30] VITALS: BP_SYST 92
--- NOTE | 2024-04-21 23:32 | NUR ---
patient arrived from [facility] via EMS, alert and responding "yes" or "no" to questions otherwise nonverbal, following commands appropriately. family at bedside to assist with admission. denies chest pain and shortness of breath. up to bathroom and back in bed x2 assist with gait belt, unsteady gait noted with right lower extremity weakness. right upper extremity able to move slightly along the bed with notable contractures in right metatarsals. no remarkable skin findings, CDI. IV in LF started by other facility infiltrated, new IV placed in RF, patent site CDI with NS running at 60 ml/hr. [id number]- Kaylynn, DICTATING MACHINE TYPIST notified of critical troponin. pt aware of NPO at midnight. full linen change and pericare performed for incontinence. fall and seizure precautions in place, call light within reach. pt has no further needs, questions, or concerns at this time.
[2024-04-22] VITALS (289 sets, daily range): BP systolic 79–114; BP diastolic 51–77; PULSE 68–92; TEMP 97.5–98.6; O2SAT 78–100
[2024-04-22] MEDS ORDERED: LORazepam 2 MG/ML 1 ML VIAL IV PRN (02:30)
[2024-04-22 04:08] LABS: BASO % 0.4 % (0.0-2.0); EOS # 0.2 K/mm3 (0.0-0.7); EOS % 2.1 % (0.0-4.0); GRAN % 70.4 % (42.2-75.2); HEMATOCRIT 46.5 % (42.0-52.0); HEMOGLOBIN 15.6 g/dl (13.5-18.0); LYMPH # 1.8 K/mm3 (1.2-3.4); LYMPH % 18.3 % (20.0-51.0); MEAN CELL VOLUME 88 fl (80.0-100.0); MEAN CORPUSCULAR HEMOGLOBIN 30 pg (27-31); MEAN CORPUSCULAR HGB CONC 34 g/dl (33.0-37.0); MEAN PLATELET VOLUME 8.8 fl (7.4-10.4); MONO # 0.8 K/mm3 (0.1-0.6); MONO % 8.5 % (1.7-9.3); PLATELET COUNT 287 K/mm3 (130-400); RED BLOOD COUNT 5.28 M/mm3 (4.20-5.60); REDCELL DISTRIBUTION WIDTH-CV 13.2 % (11.5-14.5)
[2024-04-22 04:26] LABS: CALCIUM 8.3 mg/dL (8.4-10.2); CREATININE, serum 0.86 mg/dL (0.72-1.25); POTASSIUM 3.7 mEq/L (3.5-4.5)
[2024-04-22] MEDS ORDERED: levETIRAcetam 1,500 MG in Syringe 1 EACH IV ONE (05:30)
--- NOTE | 2024-04-22 06:28 | NUR ---
Pt arrived on unit at 0544. Received report from LION Yanez from medical floor. Pt drowsy and able to open eyes open speech at this time. Pt's vitals are stable at this time. Pt on 2 L O2 via NC. Pt able to squeeze nurse's hand with his left hand, but not his right. Pupils are equal and reactive to light. IVF's are running at this time and Keppra dose was given. Not able to verifiy the med. rec., pharmacy, and allergies due to pt having expressive aphasia. Pt has his cane with him. Will give report to day shift nurse.
[2024-04-22] MEDS ORDERED: NS 1,000 ML IV ONE ×2 (08:00→12:15)
[2024-04-22] MEDS ORDERED: Potassium Chloride 10 mEq/100 mL IV Soln IV SCH (09:00)
[2024-04-22] MEDS ORDERED: Patient's Own Medication Item PO SCH (09:00)
--- NOTE | 2024-04-22 09:39 | NUR ---
sorting livestock worker notes pt has been having seizures with likely cognitive impairment at baseline. LORENZA was informed Dr. Pinto will manage pt in the ICU and would like DPOA-HC to be secured. SW could not leave voicemail for sister, Jocelyne [phone]. SW left voicemail for Wiliam "Jonah" [phone] and Roxana [phone]. LORENZA located DPOA-HC on file listing all three siblings, DNR order, and living will. LORENZA received a call from pt's brother, "Jonah." He was aware pt was in the hospital, but thought he was still on the medical floor. He confirmed pt lives alone in [place]. Pt sees Dr. Salinas for PCP needs and obtains medications from [facility] and [facility] with no difficulties. He reports pt has traditonal Medicare and [employer] insurance. Pt is typically independent with ADLS, with right sided weakness and uses a cane for DME. Brother confirmed all siblings are DPOA-HC. No further needs noted. PT/OT Pending Discharge Plan: tbd
--- NOTE | 2024-04-22 12:07 | NUR ---
D: Program Manager Rn stopped by room on rounds A: Pt was resting and content with sister in the room. Pt has no needs right now. P: Program Manager Rn informed pt that if he needed anything from the diamond assorter area to let his nurse know. Program Manager Rn will follow up as needed.
--- NOTE | 2024-04-22 14:10 | NUR ---
I WAS AT THE PATIENTS BEDSIDE FINISHING UP AN EXTERNAL CONDOM CATHETER WHEN THE PATIENT HAD WHAT LOOKED TO BE AN EXTENSIVE FOCAL SEIZURE WITH THE RIGHT ARM. HE HAD BEEN HAVING SMALLER FOCAL SEIZURES, BUT THIS ONE CAUSED HIS HEART RATE TO SPIKE UP AND HE HAD MORE VIOLENT SHAKING. PT WAS GIVEN SOME ATIVAN. WILL CONTINUE TO MONITOR.
[2024-04-22] MEDS ORDERED: FOSPHENYTOIN IV ONE (15:30)
[2024-04-22] MEDS ORDERED: SODIUM CHLORIDE IV ONE (15:30)
[2024-04-22] MEDS ORDERED: levETIRAcetam 1,500 MG in Syringe 1 EACH IV SCH (21:00)
--- NOTE | 2024-04-22 21:24 | NUR ---
PATIENT IN BED, RESTING, BUT ALERT. UNABLE TO DETERMINE ORIENTATION PATIENT HAS EXPRESSIVE APHASIA, AND INTERMITTEN RECEPTIVE APHASIA. HIS RESPONSES HAVE BEEN LIMITED TO YESSES AND NOS. PATIENT IS UTILIZING A CONDOM CATHETER FOR VOIDING PURPOSES, THE URINAL BECAME COMPLICATEDD AND THERE WAS SPILLAGE OF URINE. PT IS TOLERATING THIS WELL. PATIENT IS ON SZR PRECAUTIONS WITH SZR PADS ON BED [id number]. CALL LIGHT IS IN REACH, BED ALARM, ON BED IN LOWEST POSITION.
--- NOTE | 2024-04-22 23:15 | NUR ---
Pt displaying siezure activity. R arm waving around vigorously shaking his body. Pt is known to have focal siezures with the activity displayed in the right arm. 1mg if ativan given.
[2024-04-22] MEDS ORDERED: NS IV SCH (23:30)
[2024-04-22] MEDS ORDERED: FOSPHENYTOIN IV SCH (23:30)
[2024-04-23] VITALS (202 sets, daily range): BP systolic 89–118; BP diastolic 63–94; PULSE 72–92; TEMP 97.6–98.3; O2SAT 51–99
[2024-04-23 03:28] LABS: BASO # 0.1 K/mm3 (0.0-0.2); BASO % 0.5 % (0.0-2.0); EOS # 0.2 K/mm3 (0.0-0.7); EOS % 1.6 % (0.0-4.0); GRAN # 8.4 K/mm3 (1.4-6.5); GRAN % 72.3 % (42.2-75.2); HEMATOCRIT 44.2 % (42.0-52.0); HEMOGLOBIN 15.1 g/dl (13.5-18.0); LYMPH % 17.3 % (20.0-51.0); MEAN CELL VOLUME 88 fl (80.0-100.0); MEAN CORPUSCULAR HEMOGLOBIN 30 pg (27-31); MEAN CORPUSCULAR HGB CONC 34 g/dl (33.0-37.0); MEAN PLATELET VOLUME 8.5 fl (7.4-10.4); MONO # 0.9 K/mm3 (0.1-0.6); PLATELET COUNT 281 K/mm3 (130-400); RED BLOOD COUNT 5.05 M/mm3 (4.20-5.60); REDCELL DISTRIBUTION WIDTH-CV 13.1 % (11.5-14.5)
[2024-04-23 03:48] LABS: CALCIUM 8.4 mg/dL (8.4-10.2); CREATININE, serum 0.84 mg/dL (0.72-1.25)
--- NOTE | 2024-04-23 07:38 | NUR ---
PT APPEARS TO BE SLEEPING COMFORTABLY, NO SIGNS IF DISCOMFORT. PT REMAINS ON LOW DOSE LEVOPHED; ATTEMPTING TO WEAN OFF. SEIZURE PRECAUTIONS IN PLACE. PT HAD ONE SEIZURE OVERNIGHT.
--- NOTE | 2024-04-23 08:58 | NUR ---
farmworker poultry attended clinical rounding and Dr. Pinto reports pt is awaiting an MRI around 1pm today, then telehealth Neuro consult to assess. He reports family was aware that he has a poor prognosis and is not curable. Palliative consult will be ordered. LORENZA previously met with pt and his brother, "Jonah" to discuss pt discharge planning. Pt was mostly non-verbal and pointed to his brother when SW asked if he would like her to discuss with him. SW discussed with brother and provided Medicare.gov list of nursing homes. He reports that pt has been at [facility] in [place] and acknowledges pt has difficulites and SW has concerns about pt returning home in his condition. Brother was also open to [facility] [facility]. LORENZA advised she will follow along for reccomendations at this time. Discharge Plan: goals of care meeting needed
[2024-04-23 09:48] LABS: CHOLESTEROL RISK RATIO 5.7
[2024-04-23] MEDS ORDERED: Gadoterate 15 ML VIAL IV ONE (13:40)
--- NOTE | 2024-04-23 14:40 | NUR ---
Palliative care consult completed at this time. Reason for consult explained to family. Discussed plan of care, treatment, consults & tests as outlined in provider notes. Family stated that they are aware that the prognosis is poor & that comfort care is likely nearing for the patient. Discussed what comfort care would entail in a hospital setting, but that patient would need hospice in a non-hospital setting if comfort care was their choice. Discussed what hospice options were available. Family stated that they did not feel that hospice at home would meet their needs. Discussed the pending neurology consult. Family stated that they would discuss a plan after hearing from the Neurologist. They are interested in hospice house due to the 10/03 care & the setting. Hospice in a snf was discussed; patient had snf courses post neuro surgery & family would like to avoid that, but understand that it may be a viable option that is closer to their home in [place]. Discussed DNR/DNI status. Also discussed that as new s/s or problems come up involving the patient's health that they do have the option to choose treatment if the patient is not yet comfort care. All questions answered & support provided. Family awaits Neurology visit & will discuss plan of care further amongst themselves. Request that Cadd Technician round tomorrow to review hospice options.
--- NOTE | 2024-04-23 16:33 | NUR ---
LORENZA notes goals of care discussion was completed. Family is pending decision based on Neuro feedback obtained. LORENZA went ahead and faxed referral to [facility] and [facility] for tenative review. LORENZA informed admin at [facility] of the recent update as pt is on seizure meds by IV and they might not be able to accomdate this; but they are open to having their RN reach out to hospital staff to assist. Discharge Plan: neuro consult pending, SNF vs Hospice
--- NOTE | 2024-04-23 19:14 | NUR ---
DR FROST TELEHEALTH NEURO ROUNDING ON PATIENT. PATIENTS SISTERS, SANDRA AND RIN AT THE BEDSIDE.
--- NOTE | 2024-04-23 20:30 | NUR ---
OCYGEN SAT DROPPING TO BELOW 88% ON ROOM AIR. PT WAS PLACED ON 2L NC. OXYGEN SAT. NOW 91 TO 95%
--- NOTE | 2024-04-23 21:19 | NUR ---
PATIENTS [id number] (BRAN ) CALLED. SHE STATES THAT SHE WAS SENT A PARTIAL VIDEO OF THE CALL WITH DR. FROST. STAFF WAS NOT AWARE THAT FAMILY WAS RECORDING. SISTER IN LAW WANTED TO KNOW THE NAME OF THE DOCTOR AND WHERE SHE IS FROM. THIS NURSE INFORMED HER THE DOCTORS NAME IS DR. FROST. I DO NOT KNOW WHERE SHE IS FROM. SISTER IN LAW WANTED TO KNOW IF THE PATIENT WAS GETTING HIS REMERON, KEPPRA AND NUEDEXTA. I INFORMED HER THAT HE IS GETTING THOSE MEDICATIONS. SHE ASKED IF THE CLONAZEPAM HAD BEEN STARTED. I INFORMED HER THAT THE DAY SHIFT HOSPITALIST WOULD REVIEW DR. MITCHELL NOTES AND ORDER THE MEDICATION.
--- NOTE | 2024-04-23 21:22 | NUR ---
STABLE ON ROUNDS. NO SEIZURE ACTIVITY NOTED AT THIS TIME. FAMILY AT BEDSIDE WAITING FOR TELEHEALTH NEURO TO ROUND.
--- NOTE | 2024-04-23 21:41 | NUR ---
PT HAS BASELINE RIGHT SIDED WEAKNESS. PER FAMILY HE USES A CANE AT HOME TO WALK. HE ANSWERS YES AND NO ONLY. HAS RECEPTIVE AND EXPRESSIVE APHASIA. HE IS CONFUSED TO TIME AND PLACE.
[2024-04-24] VITALS (90 sets, daily range): BP systolic 91–120; BP diastolic 66–103; PULSE 75–87; TEMP 98–99.7; O2SAT 83–98
--- NOTE | 2024-04-24 01:04 | NUR ---
PT UP TO BSC AT MIDNIGHT. PT IS IMPULSIVE. GAIT BELT AND CANE USED. BED ALARM ON. SEIZURE PRECAUTIONS REMAIN IN PLACE. CONTINUE PLAN OF CARE.
[2024-04-24 05:11] LABS: BASO % 0.4 % (0.0-2.0); EOS # 0.2 K/mm3 (0.0-0.7); EOS % 1.9 % (0.0-4.0); GRAN # 7.3 K/mm3 (1.4-6.5); GRAN % 74.5 % (42.2-75.2); HEMATOCRIT 43.7 % (42.0-52.0); HEMOGLOBIN 15.2 g/dl (13.5-18.0); LYMPH # 1.5 K/mm3 (1.2-3.4); LYMPH % 15.4 % (20.0-51.0); MEAN CELL VOLUME 88 fl (80.0-100.0); MEAN CORPUSCULAR HEMOGLOBIN 31 pg (27-31); MEAN CORPUSCULAR HGB CONC 35 g/dl (33.0-37.0); MEAN PLATELET VOLUME 8.7 fl (7.4-10.4); MONO # 0.7 K/mm3 (0.1-0.6); MONO % 7.3 % (1.7-9.3); PLATELET COUNT 248 K/mm3 (130-400); RED BLOOD COUNT 4.98 M/mm3 (4.20-5.60); REDCELL DISTRIBUTION WIDTH-CV 13.2 % (11.5-14.5)
[2024-04-24 05:14] LABS: CALCIUM 8.1 mg/dL (8.4-10.2); CREATININE, serum 0.79 mg/dL (0.72-1.25); POTASSIUM 3.7 mEq/L (3.5-4.5)
--- NOTE | 2024-04-24 06:02 | NUR ---
PT IS IMPULSIVE. OXYGEN WHILE ASLEEP. ROOM AIR WHILE AWAKE. EXPRESSIVE AND RECEPTIVE APHASIA. PT GIVE YES AND NO ANSWERS AT TIME. PT UP TO RECLINER THIS MORNING. RESPIRATIONS EVEN AND UNLABORED. NO SIGN OF DISTRESS AT THIS TIME. CONTINUE PLAN OF CARE.
--- NOTE | 2024-04-24 07:26 | NUR ---
PT SITTING IN CHAIR WITH NO SIGNS OF DISCOMFORT. PT DENIES PAIN AND NEEDS AT THIS TIME. CHAIR ALARM ON, CALL LIGHT IN REACH
--- NOTE | 2024-04-24 08:48 | NUR ---
PT IN CHAIR, FLUIDS RUNNING PER ORDER. MEDS GIVEN CRUSHED WITH APPLESAUCE, PT TOLERATED WELL. EXTERNAL CATHETER DRAINING WITH NO ISSUES. NO SIGNS OF DISCOMFORT AND PT DENIES NEEDS. CALL LIGHT IN REACH, CHAIR ALARM ON.
[2024-04-24] MEDS ORDERED: clonazePAM 0.5 MG TAB PO SCH (10:20)
--- NOTE | 2024-04-24 10:35 | NUR ---
THIS NURSE CALLED PHARMACY AND UPDATED ON MEDS GIVEN THIS MORNING TO CONFIRM IF DILANTIN OKAY TO GIVEN AT THIS TIME. THIS NURSE TOLD TO GIVE ORAL DILANTIN AROUND 1300, REPEATED BACK AND VERBALIZED UNDERSTANDING.
--- NOTE | 2024-04-24 13:38 | NUR ---
PT TAKEN TO ROOM 355 VIA WHEELCHAIR, PERSONAL BELONGINGS TAKEN AND PT OWN MEDS. PT TRANFERRED TO BED WITH 2 ASSIST AND HAS NO OBVIOUS NEEDS AT THIS TIME.
--- NOTE | 2024-04-24 13:38 | NUR ---
SW received call from ICU nurse that family /brother wanted to visit with SW about alternative options for patient. Patient previously had two referrals sent out for hospice care with [facility], patient brother (Jonah Landaverde) [phone] and patient requesting to send referrals to terminal gauger detention options at this time. [facility] and [facility] were selected. SW will fax over referrals.
--- NOTE | 2024-04-24 15:01 | NUR ---
Patient transferred to medical floor from ICU. RN notified that patient's brother is requesting to speak with SW regarding referrals SW met with brother in room, patient sleeping during visit. Brother Jonah requesting a referral be sent to [facility]. Referral faxed to [facility]. Discharge plan: SNF vs [facility]
[2024-04-24] MEDS ORDERED: levETIRAcetam 500 MG TAB PO SCH (21:00)
[2024-04-25] VITALS (11 sets, daily range): BP systolic 101–124; BP diastolic 69–80; PULSE 70–82; TEMP 97.4–98.5
--- NOTE | 2024-04-25 11:15 | NUR ---
PATIENT AWAKE AND ALERT, SITTING UP IN RECLINER. CALL LIGHT WITHIN REACH. FALL PRECAUTIONS IN PLACE. PATIENT LOOKS TO BE COMFORTABLE. MANY FAMILY MEMEBRS AT BEDTIME.
--- NOTE | 2024-04-25 12:39 | NUR ---
LORENZA sent clinical updates to [facility], [facility], and [facility]. Discharge plan: SNF/[facility]
--- NOTE | 2024-04-25 18:04 | NUR ---
PATIENT DEBO CARE PROVIDED AND NEW CONDOM CATH IN PLACE. PATIENT LYING IN BED. PATIENT APPEARS TO BE RESTING, IN NO ACUTE DISTRESS. CALL LIGHT WITHIN REACH. FALL PRECAUTIONS IN PLACE.
[2024-04-26] VITALS (12 sets, daily range): BP systolic 95–106; BP diastolic 64–70; PULSE 69–82; TEMP 97–97.8
--- NOTE | 2024-04-26 10:22 | NUR ---
SW met with patient and family in room to review Medicare IM form to prepare for possible discharge today. Brother Jonah voiced understanding of form and signed form. Original on chart, copy to family. Family asking about cost of non-EMS transport to [facility] if accepted. SW discussed [facility] and SNF reviewing clinicals and will inform family once acceptance is obtained for placement. Discharge plan: [facility] vs SNF
--- NOTE | 2024-04-26 10:52 | NUR ---
PATIENT ALERT TO SELF WITH INTERMITTENT CONFUSION. PATIENT HERE FOR NSTEMI, ICU TX. PATIENT ABLE TO ANSWER YES/NO QUESTIONS. PICC TO FAYE DOUBLE LUMEN, BOTH FLUSH WELL WITH GOOD BLOOD RETURN. INT IV TO RIGHT FA FLUSHES WELL. PATIENT ON 1LNC. PATIENT UP TO CHAIR FOR BREAKFAST. AM MEDS ADMINISTERED CRUSHED AND MIXED WITH PUDDING. EXTERNAL CATHETER WITH VALERIE OUTPUT. NO FURTHER NEEDS. CALL LIGHT IN REACH. CHAIR ALARM ON.
--- NOTE | 2024-04-26 15:32 | NUR ---
Clinical updates sent to [facility] and [facility]. Discharge plan: SNF vs [facility]
--- NOTE | 2024-04-26 16:11 | NUR ---
lawn maintenance worker attended interdisciplinary clinical rounding with Dr. Pinto. Patient is medically ready for discharge. LORENZA was contacted by [facility] to check on this referral. LORENZA explained patient and family wanted to continue with skilled rehab. [facility] will keep patient's referral in case patient needs their services in the future. LORENZA contacted [facility], [facility] and [facility]. [facility] declined patient. [facility] and [facility] are reviewing. [facility] stated they were mainly worried about the IV line and if patient would discharge with it. LORENZA notified JOSAFAT Valverde, whom is going to discuss with Dr. Pinto. Dr. Pinto reported if patient goes to [facility] the PICC line would stay in but if he went to a nursing facility he would order ativan via rectal suppository for the break through seizures rather than the IV. LORENZA provided this information to [facility]. [facility] reported they needed the financial agreement/application completed before they could accept. LORENZA requested they fax the form. LORENZA obtained form and provided to the family. SW was notified by [facility] that they could accept patient tomorrow as long as they still have bed availability. Doc to Doc number will be [phone] Salinas. Nurse to Nurse number will be [phone]. LORENZA spoke with patient's family whom expressed they would like patient to be transported via EMS. LORENZA explained the cost would likely be around $1000 but she would get an offical quote once she schedules the transport. Patient's family stated that would be okay. LORENZA scheduled [facility] transport for tomorrow around 2 pm. Quote for transportation is $1,285. LORENZA attempted to contact Jonah to notify him of the pastrana. No answer. LORENZA left voicemail. LORENZA contacted Jocelyne whom expressed Jonah would be the best point of contact for that. LORENZA attempted to contact Jonah. No answer. LORENZA asked patient's nurse to have the family call if they returned to the room. LORENZA notified [facility] that patient is looking at going to [facility] if that changes, she would notify them. They understood and would keep the referral. LORENZA Diya secure emailed updates to [facility] and faxed updates to [facility]. Discharge plan: [facility]
--- NOTE | 2024-04-26 16:30 | NUR ---
sewage disposal worker left another detailed voicemail with the cost of private pay EMS and the other option of family transport. Discharge plan: [facility]
--- NOTE | 2024-04-26 16:53 | NUR ---
rack worker called [facility] regarding the how they would want the family to pay for the cost. [facility] stated that since it was to a swing bed facility, the hospital would need to pay that. LORENZA explained that is not something that the hospital would cover at this time. LORENZA contacted [facility] whom provided the quote $1,325 but the family would need to sign an ABN form. EMS requested to keep the IV in place if he has one. LORENZA explained he has a PICC line, they stated they would be unable to administer Ativan during transport through the PICC but if he also has an IV they could use that line. LORENZA will mention this to nursing tomorrow. LORENZA attempted to contact Jonah, no answer. LORENZA contacted Roxana, patient's sister. LORENZA provided the information above regarding [facility] stating the hospital would need to pay for the transportation but that would not be something the hospital would do. LORENZA provided the quote for [facility] and that someone from the family would need to sign the ABN. Roxana expressed she felt that would be okay because they felt it would be safer for him to be transferred that way in case of a seizure but she would follow up with Jonah and get back with the geriatric social work professor. LORENZA provided her direct number and will follow up. LORENZA received a call back from Roxana and was notified that she would be picking up the patient instead of using EMS. LORENZA explained she would need to vegetable picker oxygen at the [facility] before coming to vegetable picker patient as we would be unable to send him with one of our tanks. Roxana reported she would come vegetable picker patient around 1:30 pm on 04/27/24. Discharge plan: [facility]
[2024-04-27] VITALS (7 sets, daily range): BP systolic 90–119; BP diastolic 62–76; PULSE 64–79; TEMP 97–97.9
--- NOTE | 2024-04-27 07:55 | NUR ---
Bedside report received from LION Oliveira. Pt awake in bed with no complaints. Call light within reach and fall precautions in place.
[2024-04-27] MEDS ORDERED: LIPITOR 40MG TA40 MG PO (09:36)
[2024-04-27] MEDS ORDERED: KLONOPIN 0.5MG0.5 MG PO (09:37)
[2024-04-27] MEDS ORDERED: ASPIRIN 81M81 MG/TA2 PO (09:37)
[2024-04-27] MEDS ORDERED: TOPROL XL 25MG25 MG PO (09:37)
[2024-04-27] MEDS ORDERED: KEPPRA750 MG PO (09:38)
[2024-04-27] MEDS ORDERED: DILANTIN 100MG100 MG PO (09:44)
[2024-04-27] MEDS ORDERED: PHENYTEK200 MG PO (09:44)
[2024-04-27] MEDS ORDERED: AMOXICILLIN 8751 TAB PO (10:09)
[2024-04-27] MEDS ORDERED: Amoxicillin/Clavulanate K+ 875/125 MG TAB PO SCH (10:09)
--- NOTE | 2024-04-27 13:59 | NUR ---
Pt left facility to swing bed. Pt left with family in family vechile. Discharge packet sent with family memeber. Report called to LION Youngblood at [facility]. All questions and concerns answered appropriately. Empty home medication bottle returned to family.
--- NOTE | 2024-04-27 14:01 | NUR ---
community development worker attended interdisciplinary clinical rounding with Dr. Flood. Patient is medically ready for discharge. LORENZA contacted [facility] and confirmed patient is able to go to their facility today. [facility] stated yes but was worried about discharge plan from them. LORENZA explained she had been discussing with the family about the [facility] and they were working on completing a financial application for the [facility] in case he needed to go there after swing bed. Fabiola at [facility] stated they could accept. LORENZA explained the family would need to meat pickler an oxygen tank before coming to [place] as patient is on 1 liter of oxygen. Fabiola confirmed patient's family would need to stop by respiratory therapy at their hospital and sign a form. LORENZA provided the doc to doc number to Dr. Flood and nurse to nurse number to patient's nurse. LORENZA updated patient's nurse the plan was for Roxana to meat pickler patient around 1:30 pm today to transfer him to the [facility]. LORENZA contacted Roxana and notified her of the above information. Roxana explained she would meat pickler patient at 130 pm and would make sure to meat pickler the oxygen beforehand. Roxana explained she would be driving her SUV ([employer]) to make sure it was easier for the patient to get in and out of. Roxana confirmed Jonah is going to fill out the [facility] financial form in case patient is unable to return home from [facility]. LORENZA notified [facility] of the plan for patient to go to the swing bed unit but the family is looking at them as the discharge plan if he is unable to safely discharge home from the swing bed unit. Sri at [facility] stated she would stay in touch with the family for patient's needs. LORENZA faxed clinical updates and discharge orders to [facility]. Discharge plan: [facility]
== END 2024-04-27 14:01 | disposition swing bed (61) | DRG 280 ==
LOC: EDSTATUS 14:58 → MEDICAL 18:30 → ICU 19:59 → MEDICAL 19:59 → ICU 20:00 → MEDICAL 04-22 05:55 → ICU 04-22 05:55 → MEDICAL 04-24 16:09 → ICU 04-24 16:09 → MEDICAL 04-24 16:09
PROVIDERS: Nurse Practitioner Family; ADMIT Internal Medicine
PROC: 02HV33Z Insertion of Infusion Device into Superior Vena Cava, Percutaneous Approach (ICD-10-PCS; principal; 2024-04-22)
DX: I21.4 Non-ST elevation (NSTEMI) myocardial infarction (principal); J69.0 Pneumonitis due to inhalation of food and vomit; J96.01 Acute respiratory failure with hypoxia; R47.01 Aphasia; D32.0 Benign neoplasm of cerebral meninges; I21.A1 Myocardial infarction type 2; F48.2 Pseudobulbar affect; G93.89 Other specified disorders of brain; Z66 Do not resuscitate; Z51.5 Encounter for palliative care; I95.9 Hypotension, unspecified; I08.3 Combined rheumatic disorders of mitral, aortic and tricuspid valves; G40.909 Epilepsy, unspecified, not intractable, without status epilepticus; E78.5 Hyperlipidemia, unspecified; R13.10 Dysphagia, unspecified; M47.9 Spondylosis, unspecified; W18.30XA Fall on same level, unspecified, initial encounter; Y93.9 Activity, unspecified; Y92.009 Unspecified place in unspecified non-institutional (private) residence as the place of occurrence of the external cause
CPT/HCPCS: OP; A9575; C1751; C1892; J1650; J1953; J2060; J3480; J7030; J7060; Q2009; Q3014